=== PATIENT | male | born 1950 | race Caucasian/White ===

== ENCOUNTER 2020-07-28 11:33 | Emergency (ER) | payer MEDICARE, OTHER, SELFPAY ==
[2020-07-28 11:38] VITALS: BP 131/65; PULSE 61; RESP 20; TEMP 37; O2SAT 98
--- NOTE | 2020-07-28 11:39 | ED.MALEGU ---
HPI - Male Genitourinary General Chief complaint: Urogenital-Male Stated complaint: Bladder infection Time Seen by Provider: 07/28/20 11:39 Source: patient and RN notes reviewed History of Present Illness HPI Narrative: Patient is a 70-year-old male who presents the urgent care with complaints of suprapubic pressure and increased urination. Patient states that he woke up with the pressure last night and has noticed that his flow of urination and frequency has changed . Patient states that he just followed up with his urologist regarding his prostate issues in May, and nothing was changed. Patient states that he takes his medication as prescribed and follows up with his urologist like he is supposed to. Patient currently denies of any abdominal pain, nausea, vomiting, fever, low back pain. Patient denies any history of urinary tract infections. No other acute complaints. No acute distress noted. Patient read the plan of care. Related Data Home Medications Medication Instructions Recorded Confirmed ascorbic acid (vitamin C) 1 g PO DAILY 10/29/19 10/29/19 aspirin [Adult Low Dose Aspirin] 81 mg PO DAILY 10/29/19 10/29/19 atorvastatin 20 mg PO DAILY 10/29/19 10/29/19 cholecalciferol (vitamin D3) 1,000 unit PO DAILY 10/29/19 10/29/19 [Vitamin D3] finasteride 5 mg PO DAILY 10/29/19 10/29/19 fluticasone propionate 2 spray INTRANASAL DAILY 10/29/19 10/29/19 glucos sul [id number]-C-Mn 1 cap PO DAILY 10/29/19 10/29/19 [Glucosamine Chondroitin] lansoprazole 30 mg PO DAILY 10/29/19 10/29/19 lisinopril 10 mg PO DAILY 10/29/19 10/29/19 jkcncyadhxpr-vpy-pcdc-FA-vit K 1 tablet PO DAILY 10/29/19 10/29/19 [Adults Multivitamin] idvan-5r-aqk-epa-fish oil [[place]-3 1 cap PO DAILY 10/29/19 10/29/19 Fish Oil] sildenafil (pulm.hypertension) 20 mg PO TID PRN 10/29/19 10/29/19 silodosin 8 mg PO DAILY 10/29/19 10/29/19 valacyclovir 1,000 mg PO DAILY 10/29/19 10/29/19 Allergies Allergy/AdvReac Type Severity Reaction Status Date / Time Sulfa (Sulfonamide Allergy Unknown Unknown Verified 07/28/20 11:39 Antibiotics) Review of Systems Review of Systems: Narrative: CONSTITUTIONAL: Denies fever, chills, or sweats. EYES: Denies visual changes, redness, or discharge. ENT: Denies rhinorrhea, congestion, sore throat, or otalgia. CARDIOVASCULAR: Denies chest pain, palpitations, or edema. RESPIRATORY: Denies cough or dyspnea. GASTROINTESTINAL: Denies abdominal pain, nausea, vomiting, or diarrhea. GENITOURINARY: Reports of suprapubic pressure and urinary frequency SKIN: Denies rash or itching. MUSCULOSKELETAL: Denies back pain, joint pain, or myalgia. NEUROLOGIC: Denies headache, numbness, or weakness. All other systems reviewed are negative, except as documented in HPI. PMFSH Social History Social History Smoking status: Current some day smoker Tobacco type: cigars Comments At the time of my signature, I reviewed and agree with the nursing past medical, surgical, social, and family history. There is no relevant family history pertinent to the patient complaint. Exam Narrative: Exam Narrative: GENERAL: This is a well-nourished, well-developed patient, in no apparent distress. HEAD: normocephalic, atraumatic. EYES: PERRL. Sclera clear/white. Vision is grossly intact. EARS: External ears normal NOSE: External nose normal with no obvious nasal discharge, nares without redness, no rhinorrhea. THROAT: Mucous membranes moist, posterior pharynx clear. NECK: Neck supple GASTROINTESTINAL: Abdomen soft, suprapubic tenderness, nondistended. No hepato-splenomegaly, or palpable masses. No guarding. SKIN: warm, intact with no suspicious lesions or rash, good texture and turgor. NEURO: awake, alert, and oriented to person, place and time. There were no obvious focal neurologic abnormalities. EXTREMITIES: No clubbing, cyanosis, or edema. BACK: Negative bilateral CVA tenderness Course Vital Sig
--- NOTE | 2020-07-28 11:54 | PC.NURSE ---
NO UC ORDERED PER PROVIDER
== END 2020-07-28 11:58 | disposition home or self-care (01) ==
PROVIDERS: Emergency Provider Nurse Practitioner Family; PCP Internal Medicine
DX: R35.0 Frequency of micturition (principal); F17.290 Nicotine dependence, other tobacco product, uncomplicated; Z79.82 Long term (current) use of aspirin; E78.00 Pure hypercholesterolemia, unspecified; I10 Essential (primary) hypertension; K21.9 Gastro-esophageal reflux disease without esophagitis
CPT/HCPCS: 81003; 99212; G0463

== ENCOUNTER 2022-04-18 13:04 | Outpatient (RCR) | payer MEDICARE, OTHER, SELFPAY ==
--- NOTE | 2022-04-18 13:43 | PTOPEVAL ---
Thank you for referring Emil Ratliff to [facility].? The patient is scheduled to be seen for therapy? __2__x/week for 8 visits. Please review, sign, date and return this plan of care DANIEL. I agree with and certify that the following plan of care is medically necessary. Referring Physician Date Admitting Provider: Attending Provider: Arpan Mejias, Referring Provider: *PT Outpatient Evaluation Start: 04/18/22 13:06 Freq: Status: Active Protocol: Document 04/18/22 13:06 MATTIE (Rec: 04/18/22 13:43 MATTIE [email or web address]) Therapy Assessment Status Assessment Status Assessment Status Evaluation Outpatient Past Medical History Cardiovascular History Hx Hypercholesterolemia Yes Hx Hypertension Yes Gastrointestinal History Hx Appendectomy Yes Hx Gastroesophageal Reflux Disease Yes Hx Hernia Yes Hx Other Gastrointestinal Disorders Yes: fistula repair Musculoskeletal History Hx Other Musculoskeletal Disorders Yes: hammer toe repair Evaluation Information Problem Diagnosis left shoulder pain Onset 02/16/22 Subjective Information Pt. reports that he developed Query Text:As Reported By Patient/ left shoulder pain a couple Family months. He reports that he was opening a screen door when the wind pulled the door, pulling his left arm into described horizontal abduction . He noticed immediate pain in the left shoulder. He gets pain described across the collarbone and into the entire arm. He reports that the pain is not constant. He states that he may have periods of no pain, but is to weak to lift a coffee cup into the microwave at home. He reports pain with having to reach away from the body. He states that the worst pain is described on the lateral region of the left shoulder. He states that rolling onto the left shoulder can wake him at night. He reports that his goal for therapy is to decrease the left shoulder pain. Prior Level of Function Activity Level (Last 3 Months) Occupation retired
--- NOTE | 2022-05-16 08:59 | PTOPEVAL ---
Thank you for referring Emil Ratliff to [facility].? The patient is scheduled to be seen for therapy? __1__x/week for 3 visits. Please review, sign, date and return this plan of care DANIEL. I agree with and certify that the following plan of care is medically necessary. Referring Physician Date Admitting Provider: Attending Provider: Arpan Mejias, Referring Provider: *PT Outpatient Evaluation Start: 04/18/22 13:06 Freq: Status: Active Protocol: Document 05/16/22 08:19 MATTIE (Rec: 05/16/22 08:58 MATTIE [email or web address]) Therapy Assessment Status Assessment Status Assessment Status Progress Outpatient Past Medical History Cardiovascular History Hx Hypercholesterolemia Yes Hx Hypertension Yes Gastrointestinal History Hx Appendectomy Yes Hx Gastroesophageal Reflux Disease Yes Hx Hernia Yes Hx Other Gastrointestinal Disorders Yes: fistula repair Musculoskeletal History Hx Other Musculoskeletal Disorders Yes: hammer toe repair Evaluation Information Problem Diagnosis left shoulder pain Onset 02/16/22 Subjective Information Pt. reports overall pain Query Text:As Reported By Patient/ intensity and frequency are Family improved. He reports that he is able to sleep better at night. He states that he still has pain and fatigue with recreational activities such as playing kwong guitar. He states that he still notes weakness and would like to continue with treatment focused on improving strength. Pain Assessment Timing of Pain Assessment Timing of Pain Assessment Pre-Treatment Pain Scale Pain Scale Used Numeric (1 - 10) Self Report Pain Assessment Left Shoulder(s) Reported Pain Level 2 Lowest Pain Intensity 0 Greatest Pain Intensity 3 Pain Score Pain Score 2: Self Report Interventions Used Interventions Used By Clinicians Exercise Upper Extremity Range of Motion General Upper Extremity Range of Motion Gross Upper Extremity Range of Motion -left shoulder flexion AROM Comments 148 degrees -left shoulder ER AROM 95 degrees -no asymmetry noted with combined IR and extension of the bilateral shoulders reaching to the mid thoracic region Upper Extremity Muscle Strength Testing General Upper
== END 2022-05-23 15:06 | disposition home or self-care (01) ==
LOC: CHSPT 13:04
PROVIDERS: PCP Internal Medicine; Visit Provider Internal Medicine
DX: M25.512 Pain in left shoulder (principal)
CPT/HCPCS: 97014; 97110; 97140; 97161; G0283

== ENCOUNTER 2022-09-27 08:10 | Outpatient (RCR) | payer MEDICARE, OTHER, SELFPAY ==
--- NOTE | 2022-09-27 09:04 | PTOPEVAL1 ---
Assessment and note entered by Rosa Dodge, PT Evaluation Information Assessment Status Evaluation Diagnosis R shoulder pain Onset 08/10/22 Subjective Information Emil reports he started having right shoulder pain in mid July when he had his right hand on a wall to steady himself and as he pushed away he felt a pain in the right shoulder. It continued to bother him so he saw his chemistry specialist . He had a x-ray that showed mild arthritis. He had a cortisone injection last week that helped but he still has pain. He notes that he still has pain putting his right arm into a jacket or shirt. He was having difficulty raising the arm overhead but the injection as helped make that less painful. He had PT for his left shoulder a couple months ago and feels he needs PT to learn a home exercise program for his right shoulder. Reported Pain Level Pain Score 1: Self Report Assessment PT Clinical Summary Emil Ratliff presents with right shoulder pain that started about 6 weeks ago. X-ray has shown mild arthritis. He has difficulty reaching and lifting overhead and to the side. He also notes pain when trying to put his right arm into a shirt or jacket . He had an injection last week that helped decrease pain. He objectively demonstrates mild deficits in right shoulder AROM, decreased right shoulder strength, poor posture, and positive special tests consistent with rotator cuff tendonitis. He will benefit from skilled PT to address the above physical and functional limitations. Plan of Care Interventions Hot Pack/Cold Pack,Manual Therapy,Patient/ Caregiver Educati,Therapeutic Activities, Therapeutic Exercise PT Services Indicated Yes Treatment Frequency and 1 time a week for 6 visits. Duration These treatments will address the objective and functional deficits as defined above. The patient will be advanced safely and appropriately in order for the patient to progress towards his/her prior level of function. Additional exercises will be introduced and as well as a comprehensive home exercise program upon discharge, if needed, ?to ensure carryover of functional gains achieved in the clinic. This treatment plan has been reviewed and agreement upon by the patient.
== END 2022-10-26 11:11 | disposition home or self-care (01) ==
LOC: CHSPT 08:10
PROVIDERS: Visit Provider Nurse Practitioner
DX: M25.511 Pain in right shoulder (principal)
CPT/HCPCS: 97110; 97161

== ENCOUNTER 2023-02-22 08:14 | Outpatient (CLI) | payer MEDICARE, OTHER, SELFPAY ==
--- NOTE | 2023-02-22 11:00 | NEURO_ITS ---
Impression: Patient reports a history of right hand pain. # Mild right Carpal Tunnel Syndrome. # Normal needle/EMG exam. # Clinical correlation recommended. Motor Nerve Conduction Upper Extremities Median Nerve Conduction Velocity (m/sec) Terminal Latency (msec) Response Voltage(mV) Elbow-Wrist Wrist Elbow Wrist Right 58 3.4 4 5 Left Ulnar Nerve Conduction Velocity (m/sec) Terminal Latency (msec) Response Voltage(mV) Above Elbow Below Elbow Wrist Above Elbow Below Elbow Wrist Right 53 51 2.1 4 4 5 Left F-Wave Latency Median (ms) Ulnar (ms) Right 33.6 27.3 Left Sensory Nerve Conduction Upper Extremities Median Nerve Stimulation Terminal Latency (msec) Wrist/Digit Response Voltage (uV) Wrist Right 4.8/6.2 7/9 Left Ulnar Nerve Stimulation Terminal Latency (msec) Wrist/Digit Response Voltage (uV) Wrist Right 2.9 20 Left Radial Nerve Terminal Latency (msec) Response Voltage(mV) Right 2.4 25 Left Left Right Muscles Examined Fibrillation Fasciculation Scarcity Voltage Duration Left Right Left Right Left Right Left Right Left Right Deltoid Biceps X Brachioradialis Triceps X Pronator Teres X Ext Indicis X Ext Digitorum X Abd Poll Brev X 1st Dorsal Interosseus Abd Dig Min MTDD
== END 2023-02-22 08:15 | disposition home or self-care (01) ==
LOC: ANHNEURO 08:16
PROVIDERS: PCP Internal Medicine; Visit Provider Nurse Practitioner
DX: R20.0 Anesthesia of skin (principal); G56.01 Carpal tunnel syndrome, right upper limb
CPT/HCPCS: 95886; 95909